=== PATIENT | female | born 2005 | race Caucasian/White ===

== ENCOUNTER → 2024-07-18 12:17 | Outpatient (REF) | payer OTHER, SELFPAY | LOC: HWRAD 12:17 | PROVIDERS: ATTENDING PHYSICIAN Pediatrics | DX: R05.9 Cough, unspecified (principal) | CPT/HCPCS: 71046 ==

== ENCOUNTER → 2025-03-08 10:45 | Outpatient (REF) | payer BC, SELFPAY | LOC: RAD 10:45 | PROVIDERS: ATTENDING PHYSICIAN Registered Nurse; FAMILY PHYSICIAN Pediatrics | DX: R22.31 Localized swelling, mass and lump, right upper limb (principal) | CPT/HCPCS: 73206; Q9967 ==

== ENCOUNTER 2025-03-19 13:12 | Emergency (ER) | payer OTHER, SELFPAY ==
[2025-03-19 13:14] VITALS: BP 127/87
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
== END 2025-03-19 17:42 | disposition home or self-care (01) ==
LOC: EMR 13:12
PROVIDERS: EMERGENCY PHYSICIAN Emergency Medicine; FAMILY PHYSICIAN Pediatrics
DX: S09.90XA Unspecified injury of head, initial encounter (principal); V49.88XA Car occupant (driver) (passenger) injured in other specified transport accidents, initial encounter
CPT/HCPCS: 99284; 70450

== ENCOUNTER → 2025-03-30 09:05 | Outpatient (REF) | payer OTHER, SELFPAY | LOC: RAD 09:05 | PROVIDERS: ATTENDING PHYSICIAN Surgery Vascular Surgery; FAMILY PHYSICIAN Pediatrics | DX: R22.31 Localized swelling, mass and lump, right upper limb (principal) | CPT/HCPCS: 93971 ==